=== PATIENT | female | born 1935 | race Caucasian/White ===

== ENCOUNTER 2018-07-13 07:21 | Day surgery (SDC) | payer MEDICARE ==
[~2018-07-13 07:21] MED LIST: BRIMONIDINE 0.2% OPHTH DROPS 5 ML ONE; BSS/LIDOCAINE/EPINEPHRINE 1 ML SYRINGE ONE; EPINEPHrine 1 MG/ML AMP ONE; TIMOLOL 0.5% OPHTH DROPS ONE; TRIAMCIN/MOXIFLOX OPHTHALMIC 0.6 ML VIAL IO ONE; VANCOMYCIN OPHTHALMI 8MG/0.8ML 8 MG/0.8 ML SYRINGE IO ONE
[2018-07-13] MEDS ORDERED: KETOROLAC 0.45% OPHTH DROPS ONE (07:28)
[2018-07-13] MEDS ORDERED: PROPARACAINE 0.5% OPHTH DROPS 15 ML ONE (07:28)
[2018-07-13] MEDS ORDERED: CYCLOPENTOLATE 1% OPHTH DROPS 2 ML ONE (07:28)
[2018-07-13] MEDS ORDERED: LACTATED RINGERS 500 ML IV ONE (07:44)
[2018-07-13] MEDS ORDERED: PROPARACAINE 0.5% OPHTH DROPS 15 ML RIGHTEYE ONE (07:48)
[2018-07-13] MEDS ORDERED: CYCLOPENTOLATE 1% OPHTH DROPS 2 ML RIGHTEYE ONE (07:48)
[2018-07-13] MEDS ORDERED: PHENYLEPHRINE 2.5% OPHTH 2 ML DROPS RIGHTEYE ONE (07:48)
[2018-07-13] MEDS ORDERED: KETOROLAC 0.45% OPHTH DROPS RIGHTEYE ONE (07:48)
--- NOTE | 2018-07-13 08:03 | ANESTHESIA ---
Pre-Anesthesia VS, & Labs - Diagnosis right combined senile cataract - Procedure right cataract extraction with intraocular lens implant Vital Signs: Temp Pulse Resp BP Pulse Ox 36.3 C L 52 L 16 135/55 H 98 07/13/18 07:26 07/13/18 07:26 07/13/18 07:26 07/13/18 07:26 07/13/18 07:26 Height 5 ft 2 in Weight (kg) 66.8 kg - NPO >8 hours - Is Patient ?: No Home Medications and Allergies Home Medications: Ambulatory Orders Aspirin [Adult Aspirin Regimen] 81 mg PO DAILY 07/12/18 Atorvastatin [Lipitor] 40 mg PO DAILY 07/12/18 C,E,Zinc,Copper 11/Tgseo2l/Lut [Ocuvite Adult 50 Plus Softgel] 1 each PO DAILY 07/12/18 Clopidogrel [Plavix] 75 mg PO DAILY 07/12/18 Spironolact/Hydrochlorothiazid [Spironolactone-Hctz 25-25 Tab] 1 each PO DAILY 07/12/18 Aspirin [Adult Aspirin Regimen] 81 mg PO DAILY 07/12/18 Atorvastatin [Lipitor] 40 mg PO DAILY 07/12/18 C,E,Zinc,Copper 11/Fwdye8i/Lut [Ocuvite Adult 50 Plus Softgel] 1 each PO DAILY 07/12/18 Clopidogrel [Plavix] 75 mg PO DAILY 07/12/18 Spironolact/Hydrochlorothiazid [Spironolactone-Hctz 25-25 Tab] 1 each PO DAILY 07/12/18 Allergies/Adverse Reactions: Allergies Allergy/AdvReac Type Severity Reaction Status Date / Time No Known Drug Allergies Allergy Verified 07/12/18 12:36 Anes History & Medical History - Anesthetic History Anesthesia Complications: reports: No previous complications Family history of Anesthesia Complications: Denies - Medical History Cardiovascular: reports: High cholesterol, Coronary artery disease, [place] Pulmonary: reports: None Gastrointestinal: reports: None Urinary: reports: None Neuro: reports: TIA (plavix since 2001) Musculoskeletal: reports: Osteoarthritis Endocrine/Autoimmune: reports: None Skin: reports: None - Surgical History General: Cholecystectomy Cardiothoracic: CABG Gynecologic: section Orthopedic: Other Exam General: Alert Dental: WNL, Dentures full Upper Mouth Opening: Greater than 4 Fingerbreadths Neck Mobility: Normal Mallampati classification: II Thyromental Distance: greater than 6 cm Respiratory: Lungs clear Cardiovascular: Regular rate, Normal S1, Normal S2, No murmurs Mental/Cognitive Status: Alert/Oriented X3 Plan Anesthesia Type: MAC Consent for Procedure(s) Verified and Reviewed: No Code Status: Attempt Resuscitation ASA classification: 3-Severe systemic disease Is this case an emergency?: No
[2018-07-13] MEDS ORDERED: BRIMONIDINE 0.2% OPHTH DROPS 5 ML OPTH ONE (08:35)
[2018-07-13] MEDS ORDERED: MIDAZOLAM 2 MG/2 ML VIAL IVP ONE (08:35)
[2018-07-13] MEDS ORDERED: EPINEPHrine 1 MG/ML AMP IVP ONE (08:35)
[2018-07-13] MEDS ORDERED: CHONDR SULF/HYALURONATE SYRINGE IO ONE (08:35)
[2018-07-13] MEDS ORDERED: TIMOLOL 0.5% OPHTH DROPS OPTH ONE (08:35)
[2018-07-13] MEDS ORDERED: BSS/LIDOCAINE/EPINEPHRINE 1 ML SYRINGE IO ONE (08:36)
[2018-07-13] MEDS ORDERED: TRIAMCIN/MOXIFLOX OPHTHALMIC 0.6 ML VIAL IO ONE ×2 (08:36)
[2018-07-13 09:11] VITALS: BP 115/45
[2018-07-13] MEDS ORDERED: VANCOMYCIN OPHTHALMI 8MG/0.8ML 8 MG/0.8 ML SYRINGE IO ONE (09:34)
[2018-07-13] MEDS ORDERED: PHENYLEPHRINE 2.5% OPHTH 2 ML DROPS ONE (09:48)
--- NOTE | 2018-07-13 10:17 | OPERATIVE REPORT ---
DATE OF SERVICE: 07/13/2018 Physician: Harish Fishman MD PREOPERATIVE DIAGNOSIS: Visually significant cataract, right eye. This was her first cataract surge ry. POSTOPERATIVE DIAGNOSIS: Visually significant cataract, right eye. This was her first cataract surg terry. NAME PROCEDURE: Phacoemulsification with posterior chamber intraocular lens implant, right eye. SURGEON: Harish Fishman M.D. ANESTHESIA: Monitored anesthesia care. COMPLICATIONS: None. 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 Best corrected visual acuity was 20/50 with glare to 20/200 in the right eye. Indications for surgery are overall decrease in vision, difficulty seeing words on a computer screen, difficulty reading; difficulty seeing words, closed caption game scores on TV, difficulty seeing str eet signs, difficulty driving in low light or at night, difficulty driving at night because of headli ghts from other vehicles, and difficulty with glare or bright light in any situation. She was consen hardeep at length concerning the risks and benefits of cataract surgery, after which she expressed a yanelis re to proceed with surgery. OPERATIVE PROCEDURE: The patient was taken to OR #3 and placed under monitored anesthesia care. A s urgical timeout was conducted confirming correct patient, correct procedure, and correct surgical sit e. She was given topical anesthesia, then prepped and draped in the usual sterile fashion. The eye was entered at the 12 and 9 o'clock positions. Intracameral Shugarcaine was injected into th e anterior chamber, followed by Viscoat. 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 A continuous-tear curvilinear capsulorrhexis was performed. The nucleus was hydrodi ssected and phacoemulsified. The cortex was evacuated using automated infusion and aspiration. Prov isc was injected in the capsular bag, and a 22.5 diopter intraocular lens inserted in the bag. Appro ximately 0.8 mL of a mixture of triamcinolone, moxifloxacin and vancomycin was injected subconjunctiv ally in the superior quadrant for infection, inflammation and prophylaxis. I and A was used to evacu ate the viscoelastic materials. The eye was inflated to physiologic pressure using balanced salt nate ution and found to be watertight. Patient was taken from the operating room in good condition and po stop instructions. TD: 07/13/2018 09:02
== END 2018-07-13 07:22 | disposition home or self-care (01) ==
LOC: SDS 07:21
PROVIDERS: ATTEND Ophthalmology
PROC: 08RJ3JZ Replacement of Right Lens with Synthetic Substitute, Percutaneous Approach (ICD-10-PCS; principal; 2018-07-13 08:30)
DX: H25.811 Combined forms of age-related cataract, right eye (principal); I11.0 Hypertensive heart disease with heart failure; I50.9 Heart failure, unspecified; I25.2 Old myocardial infarction; Z95.1 Presence of aortocoronary bypass graft; Z86.73 Personal history of transient ischemic attack (TIA), and cerebral infarction without residual deficits; Z79.82 Long term (current) use of aspirin; I25.10 Atherosclerotic heart disease of native coronary artery without angina pectoris; Z87.891 Personal history of nicotine dependence
CPT/HCPCS: 66984; A9270; V2632

== ENCOUNTER 2018-09-14 06:11 | Day surgery (SDC) | payer MEDICARE ==
[2018-09-14] MEDS ORDERED: KETOROLAC 0.45% OPHTH DROPS ONE (06:32)
[2018-09-14] MEDS ORDERED: CYCLOPENTOLATE 1% OPHTH DROPS 2 ML ONE (06:32)
[2018-09-14] MEDS ORDERED: PHENYLEPHRINE 2.5% OPHTH 2 ML DROPS ONE ×2 (06:32→06:34)
[2018-09-14] MEDS ORDERED: PROPARACAINE 0.5% OPHTH DROPS 15 ML ONE (06:33)
[2018-09-14] MEDS ORDERED: LACTATED RINGERS 500 ML IV ONE (06:35)
[2018-09-14] MEDS ORDERED: KETOROLAC 0.45% OPHTH DROPS LEFTEYE ONE (06:36)
[2018-09-14] MEDS ORDERED: CYCLOPENTOLATE 1% OPHTH DROPS 2 ML LEFTEYE ONE (06:36)
[2018-09-14] MEDS ORDERED: PHENYLEPHRINE 2.5% OPHTH 2 ML DROPS LEFTEYE ONE (06:36)
[2018-09-14] MEDS ORDERED: PROPARACAINE 0.5% OPHTH DROPS 15 ML LEFTEYE ONE (06:36)
[2018-09-14] MEDS ORDERED: TRIAMCIN/MOXIFLOX OPHTHALMIC 0.6 ML VIAL IO ONE ×2 (06:55→07:40)
[2018-09-14] MEDS ORDERED: VANCOMYCIN OPHTHALMI 8MG/0.8ML 8 MG/0.8 ML SYRINGE IO ONE ×2 (06:56→07:40)
[2018-09-14] MEDS ORDERED: BSS/LIDOCAINE/EPINEPHRINE 1 ML SYRINGE ONE (06:56)
[2018-09-14] MEDS ORDERED: EPINEPHrine 1 MG/ML AMP ONE (06:56)
[2018-09-14] MEDS ORDERED: TIMOLOL 0.5% OPHTH DROPS ONE (06:56)
[2018-09-14] MEDS ORDERED: BRIMONIDINE 0.2% OPHTH DROPS 5 ML ONE (06:56)
--- NOTE | 2018-09-14 07:04 | ANESTHESIA ---
Pre-Anesthesia VS, & Labs - Diagnosis left senile combined cataract - Procedure left extraction cataract with lens implant Vital Signs: Temp Pulse Resp BP Pulse Ox 36.6 C 54 L 12 141/60 H 94 09/14/18 06:38 09/14/18 06:38 09/14/18 06:38 09/14/18 06:38 09/14/18 06:38 Height 5 ft 3 in Weight (kg) 68.5 kg - NPO >8 hours - Is Patient ?: Not Applicable Home Medications and Allergies Home Medications: Ambulatory Orders Furosemide [Lasix] 40 mg PO DAILY 09/14/18 Aspirin [Adult Aspirin Regimen] 81 mg PO DAILY 07/12/18 Atorvastatin [Lipitor] 40 mg PO DAILY 07/12/18 C,E,Zinc,Copper 11/Sysku9j/Lut [Ocuvite Adult 50 Plus Softgel] 1 each PO DAILY 07/12/18 Clopidogrel [Plavix] 75 mg PO DAILY 07/12/18 Spironolact/Hydrochlorothiazid [Spironolactone-Hctz 25-25 Tab] 1 each PO DAILY 07/12/18 Furosemide [Lasix] 40 mg PO DAILY 09/14/18 Allergies/Adverse Reactions: Allergies Allergy/AdvReac Type Severity Reaction Status Date / Time No Known Drug Allergies Allergy Verified 07/12/18 12:36 Anes History & Medical History - Anesthetic History Anesthesia Complications: reports: No previous complications Family history of Anesthesia Complications: Denies Family history of Malignant Hyperthermia: Denies - Medical History Cardiovascular: reports: High cholesterol, Coronary artery disease, [place] Pulmonary: reports: None Gastrointestinal: reports: None Urinary: reports: None Neuro: reports: TIA (plavix since 2001) Musculoskeletal: reports: Osteoarthritis Endocrine/Autoimmune: reports: None Skin: reports: None - Surgical History General: Cholecystectomy Cardiothoracic: CABG Gynecologic: section Orthopedic: Other Exam General: Alert, Oriented x3, Cooperative, No acute distress Dental: Dentures full Upper Mouth Openin Fingerbreadth Neck Mobility: Normal Mallampati classification: II Thyromental Distance: 4-6 cm Respiratory: Lungs clear, Normal breath sounds, No respiratory distress, No accessory muscle use Cardiovascular: Normal S1, Normal S2 Mental/Cognitive Status: Alert/Oriented X3, Normal for patient Cognitive Status: Within normal limits Plan Anesthesia Type: MAC Consent for Procedure(s) Verified and Reviewed: Yes Code Status: Attempt Resuscitation ASA classification: 2-Mild systemic disease Is this case an emergency?: No
[2018-09-14] MEDS ORDERED: CHONDR SULF/HYALURONATE SYRINGE IO ONE (07:29)
[2018-09-14] MEDS ORDERED: BRIMONIDINE 0.2% OPHTH DROPS 5 ML OPTH ONE (07:29)
[2018-09-14] MEDS ORDERED: TIMOLOL 0.5% OPHTH DROPS OPTH ONE (07:29)
[2018-09-14] MEDS ORDERED: EPINEPHrine 1 MG/ML AMP IVP ONE (07:29)
[2018-09-14] MEDS ORDERED: MIDAZOLAM 2 MG/2 ML VIAL IVP ONE (07:30)
[2018-09-14] MEDS ORDERED: BSS/LIDOCAINE/EPINEPHRINE 1 ML SYRINGE IO ONE ×2 (07:30)
[2018-09-14 08:16] VITALS: BP 108/76
--- NOTE | 2018-09-14 08:46 | OPERATIVE REPORT ---
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 Cataract surgery was performed on the right eye on 07/13/2018. 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 PROCEDURE: Phacoemulsification with posterior chamber intraocular lens implant, left eye. SURGEON: Dr. Harish Fishman. ANESTHESIA: Monitored anesthesia care. COMPLICATIONS: None. OPERATIVE INDICATIONS: This is an 82-year-old woman with progressive vision loss in the left eye due to 2 to 3+ nuclear sclerotic and 2+ pseudoexfoliation cataract. Best corrected visual acuity was 20 /30 with glare to 20/60 in the left eye. Indications for surgery were difficulty seeing words on a [employer] screen, difficulty reading, difficulty seeing street signs, difficulty driving in low light o r at night, difficulty driving at night because of headlights from other vehicles, and difficulty wit h glare or bright lights in any situation. She was consented at length concerning risks and benefits of cataract surgery, after which she expressed her desire to proceed with surgery. OPERATIVE PROCEDURE: Patient was taken into OR #3 and placed under monitored anesthesia care. A haleigh gical timeout was conducted confirming correct patient, correct procedure, and correct surgical site. She was given topical anesthesia, and then prepped and draped in the usual sterile fashion. The eye was entered at the 6 and 3 o'clock positions. Intracameral Shugarcaine was injected into the anterior chamber, followed by Viscoat. A 7.0 mm Malyugin ring was then injected into the anterior c hamber and engaged the pupil at 4 points to dilate the pupil. A continuous-tear curvilinear capsulor rhexis was then performed. The nucleus was hydrodissected and phacoemulsified. The cortex was evacu ated using automated infusion and aspiration. Provisc was injected in the capsular bag, and a 21.5 d iopter intraocular lens inserted in the bag. The Malyugin ring was then disengaged from the pupil ma rgin and removed from the anterior chamber. I and A was used to evacuate the viscoelastic materials. The eye was inflated to physiologic pressure using a balanced salt solution and found to be waterti ght. Approximately 0.8 mL of a mixture of triamcinolone, moxifloxacin, and vancomycin was injected s ubconjunctivally in the superior quadrant for infection and inflammation prophylaxis. The patient wa s then taken from the operating room in good condition and given postop instructions. TD: 09/14/2018 07:58
== END 2018-09-14 06:12 | disposition home or self-care (01) ==
LOC: SDS 06:11
PROVIDERS: ATTEND Ophthalmology
PROC: 08RK3JZ Replacement of Left Lens with Synthetic Substitute, Percutaneous Approach (ICD-10-PCS; principal; 2018-09-14 07:30)
DX: H25.812 Combined forms of age-related cataract, left eye (principal); H35.3130 Nonexudative age-related macular degeneration, bilateral, stage unspecified; I10 Essential (primary) hypertension; Z86.73 Personal history of transient ischemic attack (TIA), and cerebral infarction without residual deficits; Z95.1 Presence of aortocoronary bypass graft; I25.10 Atherosclerotic heart disease of native coronary artery without angina pectoris; E78.00 Pure hypercholesterolemia, unspecified; I25.2 Old myocardial infarction; Z79.02 Long term (current) use of antithrombotics/antiplatelets; Z87.891 Personal history of nicotine dependence
CPT/HCPCS: 66982; A9270; J3490; V2632